=== PATIENT | male | born 2000 | race Two or more races ===

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

== ENCOUNTER 2020-03-18 17:00 | Emergency (ER) | payer OTHER ==
[~2020-03-18] VITALS: Ht 175.3 cm; Wt 52.2 kg
== END 2020-03-18 20:49 | disposition home or self-care (01) ==
LOC: EMR PED 17:00 → ER 17:00
DX: L03.114 Cellulitis of left upper limb (principal)

== ENCOUNTER 2020-10-22 16:37 | Inpatient (IN) | payer OTHER ==
[~2020-10-22] VITALS: Ht 170.2 cm; Wt 51.3 kg
== END 2020-12-10 17:42 | disposition home or self-care (01) | DRG 812 ==
LOC: EMR PED 16:37 → SURG 21:31 → SEC-K 21:31 → MEDI 21:31 → SURG 23:59 → MEDI 11-04 21:33
PROVIDERS: ADMIT Internal Medicine; ATTEND Internal Medicine
PROC: BW20ZZZ Computerized Tomography (CT Scan) of Abdomen (ICD-10-PCS; 2020-10-22)
PROC: 8E0ZXY6 Isolation (ICD-10-PCS; 2020-10-29)
PROC: BW20YZZ Computerized Tomography (CT Scan) of Abdomen using Other Contrast (ICD-10-PCS; 2020-11-08)
PROC: 3E0336Z Introduction of Nutritional Substance into Peripheral Vein, Percutaneous Approach (ICD-10-PCS; 2020-11-08)
PROC: 4A12X4Z Monitoring of Cardiac Electrical Activity, External Approach (ICD-10-PCS; 2020-11-18)
PROC: B24BZZZ Ultrasonography of Heart with Aorta (ICD-10-PCS; 2020-11-23)
PROC: 30233N1 Transfusion of Nonautologous Red Blood Cells into Peripheral Vein, Percutaneous Approach (ICD-10-PCS; principal; 2020-11-25)
PROC: 0DB98ZX Excision of Duodenum, Via Natural or Artificial Opening Endoscopic, Diagnostic (ICD-10-PCS; 2020-11-26)
PROC: 0DB78ZX Excision of Stomach, Pylorus, Via Natural or Artificial Opening Endoscopic, Diagnostic (ICD-10-PCS; 2020-11-26)
PROC: 0DB68ZX Excision of Stomach, Via Natural or Artificial Opening Endoscopic, Diagnostic (ICD-10-PCS; 2020-11-26)
PROC: 0DB28ZX Excision of Middle Esophagus, Via Natural or Artificial Opening Endoscopic, Diagnostic (ICD-10-PCS; 2020-11-26)
PROC: 0DB38ZX Excision of Lower Esophagus, Via Natural or Artificial Opening Endoscopic, Diagnostic (ICD-10-PCS; 2020-11-26)
PROC: 0DBM8ZX Excision of Descending Colon, Via Natural or Artificial Opening Endoscopic, Diagnostic (ICD-10-PCS; 2020-11-26)
PROC: 0DBN8ZX Excision of Sigmoid Colon, Via Natural or Artificial Opening Endoscopic, Diagnostic (ICD-10-PCS; 2020-11-26)
PROC: 0DBP8ZX Excision of Rectum, Via Natural or Artificial Opening Endoscopic, Diagnostic (ICD-10-PCS; 2020-11-26)
DX: D50.0 Iron deficiency anemia secondary to blood loss (chronic) (principal); K62.5 Hemorrhage of anus and rectum; E46 Unspecified protein-calorie malnutrition; F84.5 Asperger's syndrome; N39.0 Urinary tract infection, site not specified; K50.10 Crohn's disease of large intestine without complications; E86.0 Dehydration; Z20.822 Contact with and (suspected) exposure to COVID-19; K59.09 Other constipation; D72.823 Leukemoid reaction; K29.60 Other gastritis without bleeding; K52.89 Other specified noninfective gastroenteritis and colitis; R31.21 Asymptomatic microscopic hematuria; Z53.1 Procedure and treatment not carried out because of patient's decision for reasons of belief and group pressure; F43.22 Adjustment disorder with anxiety

== ENCOUNTER 2021-01-11 07:49 | Outpatient (CLI) | payer OTHER | END 2021-01-11 08:01 | disposition home or self-care (01) | LOC: LAB 07:49 | PROVIDERS: ATTEND Pediatrics Pediatric Gastroenterology | DX: R10.84 Generalized abdominal pain (principal); K50.80 Crohn's disease of both small and large intestine without complications ==

== ENCOUNTER 2021-01-13 08:32 | Outpatient (CLI) | payer OTHER | END 2021-01-13 13:51 | disposition home or self-care (01) | LOC: LAB 08:32 | PROVIDERS: ATTEND Pediatrics Pediatric Gastroenterology | DX: R10.84 Generalized abdominal pain (principal); K50.80 Crohn's disease of both small and large intestine without complications ==

== ENCOUNTER 2021-02-01 07:55 | Outpatient (CLI) | payer OTHER | END 2021-02-01 07:58 | disposition home or self-care (01) | LOC: LAB 07:55 | PROVIDERS: ATTEND Pediatrics Pediatric Gastroenterology | DX: K50.80 Crohn's disease of both small and large intestine without complications (principal) ==

== ENCOUNTER 2021-03-25 07:47 | Outpatient (CLI) | payer OTHER | END 2021-03-25 07:48 | disposition home or self-care (01) | LOC: LAB 07:47 | PROVIDERS: ATTEND Pediatrics Pediatric Gastroenterology | DX: R10.84 Generalized abdominal pain (principal); K50.80 Crohn's disease of both small and large intestine without complications ==

== ENCOUNTER → 2021-04-26 08:07 | Outpatient (CLI) | payer OTHER | END | disposition home or self-care (01) | LOC: LAB 08:07 | PROVIDERS: ATTEND Pediatrics Pediatric Gastroenterology | DX: R10.84 Generalized abdominal pain (principal); K50.80 Crohn's disease of both small and large intestine without complications ==

== ENCOUNTER 2021-05-07 10:12 | Outpatient (CLI) | payer OTHER | END 2021-05-07 19:00 | disposition home or self-care (01) | LOC: LAB 10:12 | PROVIDERS: ATTEND Pediatrics Pediatric Gastroenterology | DX: R10.84 Generalized abdominal pain (principal); K50.80 Crohn's disease of both small and large intestine without complications ==

== ENCOUNTER 2021-05-17 07:17 | Outpatient (CLI) | payer OTHER | END 2021-05-17 07:19 | disposition home or self-care (01) | LOC: LAB 07:17 | PROVIDERS: ATTEND Pediatrics Pediatric Gastroenterology | DX: K50.80 Crohn's disease of both small and large intestine without complications (principal) ==

== ENCOUNTER 2021-06-05 08:00 | Outpatient (CLI) | payer OTHER | END 2021-06-05 08:30 | disposition home or self-care (01) | LOC: PPH VACUNA 08:00 | DX: Z23 Encounter for immunization (principal) ==

== ENCOUNTER 2021-06-21 08:23 | Outpatient (CLI) | payer OTHER | END 2021-06-21 08:25 | disposition home or self-care (01) | LOC: LAB 08:23 | PROVIDERS: ATTEND Pediatrics Pediatric Gastroenterology | DX: R10.84 Generalized abdominal pain (principal); K50.80 Crohn's disease of both small and large intestine without complications ==

== ENCOUNTER → 2021-07-26 09:10 | Outpatient (CLI) | payer OTHER | END | disposition home or self-care (01) | LOC: LAB 09:10 | PROVIDERS: ATTEND Pediatrics Pediatric Gastroenterology | DX: K50.80 Crohn's disease of both small and large intestine without complications (principal); E55.9 Vitamin D deficiency, unspecified ==

== ENCOUNTER 2021-08-30 08:49 | Outpatient (CLI) | payer OTHER | END 2021-08-30 08:50 | disposition home or self-care (01) | LOC: LAB 08:49 | PROVIDERS: ATTEND Pediatrics Pediatric Gastroenterology | DX: K50.80 Crohn's disease of both small and large intestine without complications (principal) ==

== ENCOUNTER 2021-09-11 06:55 | Outpatient (CLI) | payer OTHER | END 2021-09-11 06:56 | disposition home or self-care (01) | LOC: LAB 06:55 | PROVIDERS: ATTEND Pediatrics Pediatric Gastroenterology | DX: K50.80 Crohn's disease of both small and large intestine without complications (principal); R19.5 Other fecal abnormalities ==

== ENCOUNTER 2021-09-19 08:31 | Outpatient (CLI) | payer OTHER | END 2021-09-19 12:50 | disposition home or self-care (01) | LOC: LAB 08:31 | PROVIDERS: ATTEND Pediatrics Pediatric Gastroenterology | DX: K50.80 Crohn's disease of both small and large intestine without complications (principal) ==

== ENCOUNTER 2021-10-20 10:21 | Outpatient (CLI) | payer OTHER | END 2021-10-20 11:51 | disposition home or self-care (01) | LOC: LAB 10:21 | PROVIDERS: ATTEND Pediatrics Pediatric Gastroenterology | DX: Z03.818 Encounter for observation for suspected exposure to other biological agents ruled out (principal) ==

== ENCOUNTER 2021-10-25 08:33 | Outpatient (CLI) | payer OTHER | END 2021-10-25 08:58 | disposition home or self-care (01) | LOC: LAB 08:33 | DX: K50.80 Crohn's disease of both small and large intestine without complications (principal) ==

== ENCOUNTER 2021-12-01 07:43 | Outpatient (CLI) | payer OTHER | END 2021-12-01 07:44 | disposition home or self-care (01) | LOC: LAB 07:43 | PROVIDERS: ATTEND Internal Medicine Gastroenterology | DX: Z20.828 Contact with and (suspected) exposure to other viral communicable diseases (principal); Z11.52 Encounter for screening for COVID-19 ==

== ENCOUNTER 2022-01-29 08:00 | Outpatient (CLI) | payer OTHER | END 2022-01-29 08:30 | disposition home or self-care (01) | LOC: PPH VACUNA 08:00 | PROVIDERS: ATTEND Emergency Medicine Pediatric Emergency Medicine | DX: Z23 Encounter for immunization (principal) ==

== ENCOUNTER 2022-02-14 09:27 | Outpatient (CLI) | payer OTHER | END 2022-02-14 09:28 | disposition home or self-care (01) | LOC: LAB 09:27 | PROVIDERS: ATTEND Internal Medicine Gastroenterology | DX: K50.011 Crohn's disease of small intestine with rectal bleeding (principal); K50.113 Crohn's disease of large intestine with fistula ==

== ENCOUNTER 2022-04-05 09:06 | Emergency (ER) | payer OTHER ==
[~2022-04-05] VITALS: Ht 172.7 cm; Wt 79.8 kg
[2022-04-05] MEDS ORDERED: RAYOS1 MG (09:15)
== END 2022-04-05 12:08 | disposition home or self-care (01) ==
LOC: ER 09:06
DX: R51.9 Headache, unspecified (principal)

== ENCOUNTER 2022-06-19 13:33 | Emergency (ER) | payer OTHER ==
[~2022-06-19] VITALS: Ht 172.7 cm; Wt 82.6 kg
[~2022-06-19 13:33] MED LIST: RAYOS1 MG
[2022-06-19] MEDS ORDERED: PANTOPRAZOLE SO40 M2 PO (14:26)
[2022-06-19] MEDS ORDERED: MILLIPRED5 MG PO (14:27)
[2022-06-19] MEDS ORDERED: FEROCON CAPSUL1 EACH PO (14:27)
== END 2022-06-19 21:04 | disposition home or self-care (01) ==
LOC: ER 13:33
DX: U07.1 COVID-19 (principal); R06.03 Acute respiratory distress

== ENCOUNTER 2022-08-01 08:04 | Outpatient (CLI) | payer OTHER ==
[~2022-08-01 08:04] MED LIST changes: +FEROCON CAPSUL1 EACH PO; +MILLIPRED5 MG PO; +PANTOPRAZOLE SO40 M2 PO
== END 2022-08-01 08:08 | disposition home or self-care (01) ==
LOC: LAB 08:04
PROVIDERS: ATTEND Internal Medicine Gastroenterology
DX: K50.011 Crohn's disease of small intestine with rectal bleeding (principal)

== ENCOUNTER 2022-12-05 08:53 | Outpatient (CLI) | payer OTHER | END 2022-12-05 08:57 | disposition home or self-care (01) | LOC: LAB 08:53 | PROVIDERS: ATTEND Internal Medicine Gastroenterology | DX: K50.113 Crohn's disease of large intestine with fistula (principal); K50.011 Crohn's disease of small intestine with rectal bleeding ==

== ENCOUNTER 2023-05-29 09:51 | Outpatient (CLI) | payer OTHER | END 2023-05-29 09:56 | disposition home or self-care (01) | LOC: LAB 09:51 | PROVIDERS: ATTEND General Practice | DX: E11.69 Type 2 diabetes mellitus with other specified complication (principal); I11.9 Hypertensive heart disease without heart failure; E78.2 Mixed hyperlipidemia; E03.8 Other specified hypothyroidism; Z12.11 Encounter for screening for malignant neoplasm of colon; Z11.59 Encounter for screening for other viral diseases ==

== ENCOUNTER 2023-10-24 10:32 | Emergency (ER) | payer OTHER ==
[~2023-10-24] VITALS: Ht 170.2 cm; Wt 81.6 kg
[2023-10-24] MEDS ORDERED: HUMIRA40 MG/0.2 SQ (10:41)
== END 2023-10-24 15:02 | disposition home or self-care (01) ==
LOC: ER 10:33
DX: L30.9 Dermatitis, unspecified (principal); R21 Rash and other nonspecific skin eruption

== ENCOUNTER 2023-12-25 08:57 | Outpatient (CLI) | payer OTHER ==
[~2023-12-25 08:57] MED LIST changes: +HUMIRA40 MG/0.2 SQ
[2023-12-25 10:34] LABS: HEMATOCRIT 47.1 % (39.0-48.0); MEAN CELL VOLUME 83.7 fL (80.0-100.00); MEAN CORPUSCULAR HEMOGLOBIN 28.4 pg (27.00-32.0); MEAN CORPUSCULAR HGB CONC 33.9 g/dl (32.0-36.0); PLATELET COUNT 351 K/uL (150-450); RED BLOOD COUNT 5.63 M/uL (4.00-6.00); RED CELL DISTRIBUTION WIDTH 15.1 % (11.5-14.5)
[2023-12-25 11:03] LABS: ALBUMIN 3.7 gm/dL (3.4-5.0); ALKALINE PHOSPHATASE 82 U/L (50-136); ALT/SGPT 23 U/L (12-78); ANION GAP 8 (10.0-20.0); AST/SGOT 19 U/L (15-37); BILIRUBIN TOTAL 0.44 mg/dL (0.3-1.2); BLOOD UREA NITROGEN 24 mg/dL (7-18); BUN CREA RATIO 24 (7.0-25.0); CALCIUM 8.8 mg/dL (8.5-10.1); CARBON DIOXIDE 26 mEq/L (21-32); CHLORIDE 107 mmol/L (98-107); CREATININE SERUM 0.99 mg/dL (0.70-1.30); GFR 93.68; GLOBULINA 3.6 G/DL (2.4-3.5); GLUCOSE FASTING 79 mg/dL (65-100); OSMOLALITY SERUM 277 MOSM/KG (275-295); POTASSIUM 4.44 mEq/L (3.5-5.1); SODIUM 137 mmol/L (136-145); TOTAL PROTEIN 7.3 gm/dL (6.4-8.2)
[2023-12-25 11:40] LABS: C-REACTIVE PROTEIN < 0.29 MG/DL (0.00-0.29)
== END 2023-12-25 09:01 | disposition home or self-care (01) ==
LOC: LAB 08:57
PROVIDERS: ATTEND Internal Medicine Gastroenterology
DX: K50.00 Crohn's disease of small intestine without complications (principal)

== ENCOUNTER 2024-11-09 19:36 | Emergency (ER) | payer OTHER ==
[~2024-11-09] VITALS: Ht 172.7 cm; Wt 81.6 kg
[2024-11-09 20:00] VITALS: BP 118/81; O2SAT 98
[2024-11-09] MEDS ORDERED: FAMOTIDINE/PF 20 MG in 0.9 % SODIUM CHLORIDE 8 ML IV PUSH STA (20:16)
[2024-11-09] MEDS ORDERED: FAMOTIDINE/PF 20 MG/2 ML VIAL ONE (20:23)
[2024-11-09] MEDS ORDERED: ONDANSETRON HCL 2 MG/ML VIAL ONE (20:23)
[2024-11-09] MEDS ORDERED: DIPHENOXYLATE HCL/ATROPINE 1 UDTAB TABLET PO ONE (20:30)
[2024-11-09] MEDS ORDERED: 0.9 % SODIUM CHLORIDE 1,000 ML IV SCH (20:30)
[2024-11-09] MEDS ORDERED: ONDANSETRON HCL 2 MG/ML VIAL IV ONE (20:30)
[2024-11-09 20:36] LABS: HEMATOCRIT 49.9 % (39.0-48.0); HEMOGLOBIN 17.2 g/dL (13-16.00); MEAN CELL VOLUME 84.1 fL (80.0-100.00); MEAN CORPUSCULAR HGB CONC 34.4 g/dl (32.0-36.0); PLATELET COUNT 339 K/uL (150-450); RED BLOOD COUNT 5.93 M/uL (4.00-6.00); RED CELL DISTRIBUTION WIDTH 15.1 % (11.5-14.5)
[2024-11-09 22:25] LABS: ALBUMIN 3.8 gm/dL (3.4-5.0); BILIRUBIN TOTAL 0.62 mg/dL (0.3-1.2); CALCIUM 8.4 mg/dL (8.5-10.1); GFR 92.6; GLOBULINA 4.8 G/DL (2.4-3.5); POTASSIUM 3.38 mEq/L (3.5-5.1); TOTAL PROTEIN 8.6 gm/dL (6.4-8.2)
[2024-11-09] MEDS ORDERED: ONDANSETRON ODT8 MG PO (22:46)
[2024-11-09] MEDS ORDERED: PEPCID AC20 MG PO (22:46)
== END 2024-11-09 22:51 | disposition home or self-care (01) ==
LOC: ER 19:38
PROVIDERS: General Practice
DX: R11.2 Nausea with vomiting, unspecified (principal); R19.7 Diarrhea, unspecified; K50.90 Crohn's disease, unspecified, without complications; Z20.822 Contact with and (suspected) exposure to COVID-19

== ENCOUNTER 2025-03-24 09:26 | Outpatient (CLI) | payer OTHER ==
[~2025-03-24 09:26] MED LIST changes: +ONDANSETRON ODT8 MG PO; +PEPCID AC20 MG PO
[2025-03-24 10:50] LABS: BASO % 0.7 % (0.1-1.2); EOS # 0.39 (0.04-0.54); EOS % 4.5 % (0.7-7.0); HEMATOCRIT 49.9 % (40.1-51.0); HEMOGLOBIN 16.8 g/dL (13.7-17.5); LYMPH # 3.34 (1.18-3.74); LYMPH % 38.8 % (19.3-53.1); MEAN CORPUSCULAR HEMOGLOBIN 28.2 pg (25.6-32.2); MONO # 1.03 (0.24-0.82); NEUT # 3.77 (1.56-6.13); NEUT % 43.8 % (34.0-71.1); PLATELET COUNT 291 K/uL (163-369); RED BLOOD COUNT 5.96 M/uL (4.63-6.08); RED CELL DISTRIBUTION WIDTH 14.1 % (11.6-14.4)
[2025-03-24 11:27] LABS: ALBUMIN 3.9 gm/dL (3.4-5.0); BILIRUBIN TOTAL 0.63 mg/dL (0.3-1.2); CALCIUM 9.2 mg/dL (8.5-10.1); CREATININE SERUM 0.88 mg/dL (0.70-1.30); FERRITIN 33.7 NG/ML (26-388); GFR 106.39; GLOBULINA 3.5 G/DL (2.4-3.5); POTASSIUM 4.33 mEq/L (3.5-5.1); TOTAL PROTEIN 7.4 gm/dL (6.4-8.2)
== END 2025-03-24 23:00 | disposition home or self-care (01) ==
LOC: LAB 09:26 → EDBD 09:26 → LAB 23:00
PROVIDERS: ATTEND Internal Medicine Gastroenterology
DX: K50.113 Crohn's disease of large intestine with fistula (principal); K50.011 Crohn's disease of small intestine with rectal bleeding